=== PATIENT | female | born 1975 | race American Indian/Alaskan Native ===

== ENCOUNTER 2017-02-19 11:59 | Emergency (ER) | payer OTHER ==
[2017-02-19 12:06] VITALS: TEMP 98.4; O2SAT 100
--- NOTE | 2017-02-19 12:34 | ED PDOC ---
Arrival/HPI - General Chief Complaint: Dizziness/Lightheaded Time Seen by Provider: 02/19/17 12:02 Historian: Patient - History of Present Illness Narrative History of Present Illness (Text): 02/19/17 12:05 A 41 year old female, whose past medical history includes PCOS, presents to the emergency department with complaints of feeling light headed and dizzy. The patient reports she was at work this morning and around 9 am she began to feel faint and weak around 11 am her symptoms significantly worsened and she had to sit down. She was brought in by a coworker after feeling "faint." The patient also reports a headache and mild nausea. The patient denies any fever, vomiting , diarrhea, chest pain, shortness of breath or any other symptoms at this time. Time/Duration: 1-3 hours Symptom Onset: Sudden Symptom Course: Unchanged Activities at Onset: Light Context: Work Past Medical History - Provider Review Nursing Documentation Reviewed: Yes - Infectious Disease Hx of Infectious Diseases: None - Genitourinary/Gynecological Hx Genitourinary Disorders: Yes Other/Comment: SERGEI - Psychiatric Hx Substance Use: No - Surgical History Other/Comment: Fibroids removal surgery. Family/Social History - Physician Review Nursing Documentation Reviewed: Yes Family/Social History: Unknown Family HX Smoking Status: Never Smoked Hx Alcohol Use: Yes Frequency of alcohol use: Socially Hx Substance Use: No Allergies/Home Meds Allergies/Adverse Reactions: Allergies No Known Allergies Allergy (Verified 02/19/17 12:06) Home Medications: Home Meds Medication Instructions Recorded Confirmed MetFORMIN [glucoPHAGE] 1,000 mg PO BID 02/19/17 02/19/17 Review of Systems - Physician Review All systems were reviewed & negative as marked: Yes - Review of Systems Constitutional: absent: Fevers Respiratory: absent: SOB Cardiovascular: absent: Chest Pain Gastrointestinal: absent: Diarrhea, Vomiting Neurological: Headache, Dizziness, Other (Light headed) Physical Exam Vital Signs Reviewed: Yes Vital Signs Temp Pulse Resp BP Pulse Ox 02/19/17 15:34 76 16 118/90 100 02/19/17 14:05 84 16 114/78 100 02/19/17 12:05 98.4 F 99 H 18 144/62 100 Appearance: Positive for: Well-Appearing, Non-Toxic, Comfortable Pain Distress: None Mental Status: Positive for: Alert and Oriented X 3 - Systems Exam Head: Present: Atraumatic, Normocephalic Pupils: Present: PERRL Extroacular Muscles: Present: EOMI Mouth: Present: Moist Mucous Membranes Neck: Present: Normal Range of Motion Respiratory/Chest: Present: Clear to Auscultation, Good Air Exchange. No: Respiratory Distress, Accessory Muscle Use Cardiovascular: Present: Regular Rate and Rhythm, Normal S1, S2. No: Murmurs Abdomen: Present: Normal Bowel Sounds. No: Tenderness, Distention, Peritoneal Signs Upper Extremity: Present: Normal Inspection. No: Cyanosis, Edema Lower Extremity: Present: Normal Inspection. No: Edema Neurological: Present: GCS=15, Speech Normal, Motor Func Grossly Intact, Normal Sensory Function Skin: Present: Warm, Dry, Normal Color. No: Rashes Psychiatric: Present: Alert, Oriented x 3, Normal Insight, Normal Concentration Medical Decision Making ED Course and Treatment: 02/19/17 12:05 Progress Notes: EKG: Ordered, reviewed, and independently interpreted the EKG. Rate : 94 BPM Rhythm : NSR Interpretation : LVH. No STEMI. Comparison : No previous EKG for comparison. 02/19/17 13:20 Discussed risks and benefits of blood transfusion with patient. I recommended she receive blood transfusion, explained reasons for the transfusion, but the patient does not wish to have a transfusion at this time. She is competent to make decisions at this time. 02/19/17 13:[address] Langley regarding patient, will come see the pt. 02/19/17 14:52 Dr. Langley came and evaluated the pt in the ER and disc transfusion but the pt still refuses transfusion. Patient will sign out against medical advice. will f/u w Dr Loyd in her office for further outpt eval. - Lab Interpretations Lab Results: 02/19/17 12:37 02/19/17 12:38 Lab Results 02/19/17 12:55: Ferritin 3.4 02/19/17 12:55: Iron 12 L, TIBC 548 H, % Saturation 2 L 02/19/17 12:38: Sodium 140, Potassium 3.8, Chloride 105, Carbon Dioxide 23, Anion Gap 16, BUN 14, Creatinine 0.7, Est GFR ( Amer) > 60, Est GFR (Non- Af Amer) > 60, Random Glucose 86, Calcium 8.9, Total Bilirubin 0.5, AST 39, ALT 38, Alkaline Phosphatase 74, Total Protein 8.1, Albumin 4.5, Globulin 3.7, Albumin/Globulin Ratio 1.2 02/19/17 12:37: WBC 6.7, RBC 4.14, Hgb 6.8 L*, Hct 25.3 L, MCV 61.1 L, MCH 16.4 L, MCHC 26.9 L, RDW 20.8 H, Plt Count 513 H, MPV 7.9, Gran % 65.8, Lymph % (Auto ) 22.5, Graves % (Auto) 9.7 H, Eos % (Auto) 0.7 L, Baso % (Auto) 1.3, Gran # 4.39 , Lymph # 1.5, Graves # 0.7 H, Eos # 0.1, Baso # 0.09 02/19/17 12:32: Urine Color Yellow, Urine Appearance Clear, Urine pH 6.0, Ur Specific [place] 1.010, Urine Protein Negative, Urine Glucose (UA) Negative, Urine Ketones Negative, Urine Blood Negative, Urine Nitrate Negative, Urine Bilirubin Negative, Urine Urobilinogen 0.2, Ur Leukocyte Esterase Negative, Urine HCG, Qual Negative - RAD Interpretation Radiology Orders: 02/19/17 12:14 HEAD W/O CONTRAST [CT] Stat - Medication Orders Current Medication Orders: Discontinued Medications Acetaminophen (Tylenol 325mg Tab) 975 mg PO STAT STA Stop: 02/19/17 15:36 Last Admin: 02/19/17 15:44 Dose: 975 mg Meclizine HCl (Antivert) 25 mg PO STAT STA Stop: 02/19/17 12:15 Last Admin: 02/19/17 12:34 Dose: 25 mg - Scribe Statement The provider has reviewed the documentation as recorded by the Josephine Monaco Provider Scribe Attestation: All medical record entries made by the Josephine were at my direction and personally dictated by me. I have reviewed the chart and agree that the record accurately reflects my personal performance of the history, physical exam, medical decision making, and the department course for this patient. I have also personally directed, reviewed, and agree with the discharge instructions and disposition. Disposition/Present on Arrival - Present on Arrival Any Indicators Present on Arrival: No History of DVT/PE: No History of Uncontrolled Diabetes: No Urinary Catheter: No History of Decub. Ulcer: No History Surgical Site Infection Following: None - Disposition Have Diagnosis and Disposition been Completed?: Yes Diagnosis: Anemia Disposition: AGAINST MEDICAL ADVICE Disposition Time: 15:03 Condition: GUARDED Discharge Instructions (ExitCare): Iron Supplements (By mouth), Anemia (ED) Additional Instructions: Please follow up with your doctor on Tuesday. Return to the ER for any worsening symptoms or for any other concerns. Referrals: Florence Loyd MD [Staff Provider] - Follow up with primary Forms: [employer] (Hungarian)
[2017-02-19 12:41] LABS: URINE BILIRUBIN NEGATIVE (NEGATIVE); URINE BLOOD NEGATIVE (NEGATIVE); URINE GLUCOSE (UA) NEGATIVE (NEGATIVE); URINE LEUKOCYTE ESTERASE NEGATIVE Leu/uL (NEGATIVE); URINE NITRATE NEGATIVE (NEGATIVE); URINE PROTEIN NEGATIVE mg/dL (<30 mg/dL); URINE UROBILINOGEN 0.2 E.U./dL (<1 E.U./dL)
[2017-02-19 12:46] LABS: URINE APPEARANCE CLEAR (CLEAR); URINE COLOR YELLOW (YELLOW)
[2017-02-19 12:47] LABS: BASO # 0.09 K/mm3 (0.0-2.0); BASO % 1.3 % (0.0-3.0); EOS # 0.1 (0.0-0.7); EOS % 0.7 % (1.5-5.0); GRAN # 4.39 (1.4-6.5); GRAN % 65.8 % (50.0-68.0); LYMPH # 1.5 (1.2-3.4); LYMPH % 22.5 % (22.0-35.0); MEAN CELL VOLUME 61.1 fL (80.0-105.0); MEAN CORPUSCULAR HEMOGLOBIN 16.4 pg (25.0-35.0); MEAN CORPUSCULAR HGB CONC 26.9 g/dl (31.0-37.0); MEAN PLATELET VOLUME 7.9 fl (7.0-11.0); MONO # 0.7 (0.1-0.6); MONO % 9.7 % (1.0-6.0); PLATELET COUNT 513 10^3/uL (120.0-450.0); RBC 4.14 10^6/uL (3.5-6.1); RED CELL DISTRIBUTION WIDTH 20.8 % (11.5-14.5); WHITE BLOOD COUNT 6.7 10^3/ul (4.5-11.0)
[2017-02-19 12:49] LABS: HCG,QUALITATIVE URINE NEGATIVE (NEGATIVE)
[2017-02-19 12:49] LABS: HEMOGLOBIN 6.8 gm/dL (12.0-16.0)
[2017-02-19 12:51] LABS: ALB/GLOB RATIO 1.2 (1.1-1.8); ALBUMIN 4.5 g/dL (3.0-4.8); ALT/SGPT 38 U/L (7-56); AST/SGOT 39 U/L (15-39); BLOOD UREA NITROGEN 14 mg/dL (7-21); CALCIUM 8.9 mg/dL (8.4-10.5); GFR AFRICAN-AMERICAN > 60; GFR NON-AFRICAN AMERICAN > 60
[2017-02-19 14:25] VITALS: RESP 16
[2017-02-19 15:17] LABS: % IRON SATURATION 2 % (20-55); IRON 12 ug/dL (45-180); TOTAL IRON BINDING CAPACITY 548 ug/dL (265-497)
--- NOTE | 2017-02-19 15:18 | CARD ---
APPROVED REPORT EKG Measurement Heart [id number] <Conclusion> Normal sinus rhythm Moderate voltage criteria for LVH, may be normal variant Borderline ECG
--- NOTE | 2017-02-19 15:23 | CT ---
PROCEDURE: CT HEAD WITHOUT CONTRAST. HISTORY: headache COMPARISON: None available. TECHNIQUE: Axial computed tomography images were obtained through the head/brain without intravenous contrast. Radiation dose: Total exam DLP = not available mGy-cm. This CT exam was performed using one or more of the following dose reduction techniques: Automated exposure control, adjustment of the mA and/or kV according to patient size, and/or use of iterative reconstruction technique. FINDINGS: HEMORRHAGE: No intracranial hemorrhage. BRAIN: No mass effect or edema. Overall gerardo and white-matter density above below the tentorium is within normal limits including within the brainstem. No mass effect or extra-axial fluid collection is identified. The lymph anatomy appears within normal limits grossly. VENTRICLES: Unremarkable. No hydrocephalus. CALVARIUM: Unremarkable. PARANASAL SINUSES: Unremarkable as visualized. No significant inflammatory changes. MASTOID AIR CELLS: Unremarkable as visualized. No inflammatory changes. OTHER FINDINGS: None. IMPRESSION: Normal CT of the Head.
[2017-02-19 15:34] VITALS: BP 118/90; PULSE 76
== END 2017-02-19 15:45 | disposition left against medical advice (07) ==
LOC: ED 11:59 → MERGE 11:59 → ED 15:45
DX: D64.9 Anemia, unspecified (principal)